=== PATIENT | female | born 1955 | race American Indian/Alaskan Native ===

== ENCOUNTER 2020-10-26 09:30 | Outpatient (CLI) | payer BC, MEDICARE ==
--- NOTE | 2020-10-26 14:13 | Mammography Report ---
DIGITAL SCREENING MAMMOGRAM WITH CAD, 10/26/2020 CLINICAL INFORMATION / INDICATION: Routine screening mammography. SCREENING MAMM TECHNIQUE: Digital bilateral 2D mammography was obtained in the craniocaudal and mediolateral obliqu e projections. This examination was interpreted with the benefit of Computer-Aided Detection analysis . COMPARISON: None available FINDINGS: Breast Density: The breasts are almost entirely fatty. No dominant mass, suspicious calcifications, or architectural distortion in either breast. A left implanted cardiac device is in place. IMPRESSION: No mammographic evidence of malignancy. Follow up recommendation: Routine yearly BI-RADS Category 1: Negative. A "normal" or negative report should not discourage follow up or biopsy of a clinically significant f inding. A written summary of these findings will be mailed to the patient. The patient will be entered into a mammography reporting system which will generate a reminder letter for the patient's next appointmen t at the appropriate interval. The [employer] recommends yearly mammograms starting at age 40 and continuing as l shellie as a woman is in good health. Breast MRI is recommended for women with an approximate 20-25% or greater lifetime risk of breast cancer, including women with a strong family history of breast or ova brendon cancer or who have been treated for Hodgkin's disease. Signer Name: Carolyn Sanchez MD Signed: 10/26/2020 2:08 PM Workstation Name: [id number]
== END 2020-10-26 09:31 | disposition home or self-care (01) ==
LOC: SPVWC 09:30
PROVIDERS: ATTEND Surgery
DX: Z12.31 Encounter for screening mammogram for malignant neoplasm of breast (principal); N64.89 Other specified disorders of breast
CPT/HCPCS: 77067

== ENCOUNTER 2020-11-22 13:12 | Outpatient (CLI) | payer MEDICARE ==
--- NOTE | 2020-11-22 15:15 | Ultrasound Report ---
ULTRASOUND BREAST RIGHT LIMITED, 11/22/2020 CLINICAL INFORMATION / INDICATION: Right lateral breast pain. TECHNIQUE: Targeted ultrasound evaluation was performed of the area of interest. COMPARISON: Bilateral mammography 10/26/20. FINDINGS: The breasts are predominantly fatty. There is no evidence of a cystic or solid mass. No posterior sha dowing or distortion are identified. IMPRESSION: No sonographic evidence of malignancy. Follow up recommendation: Routine yearly BI-RADS Category 1: Negative. A normal or "negative" report should not preclude biopsy or follow-up of a clinically suspicious find ing. Signer Name: Fili Monroe MD Signed: 11/22/2020 3:11 PM Workstation Name: [id number]
== END 2020-11-22 13:13 | disposition home or self-care (01) ==
LOC: SPVWC 13:12
PROVIDERS: ATTEND Surgery
DX: N64.4 Mastodynia (principal); R92.8 Other abnormal and inconclusive findings on diagnostic imaging of breast